=== PATIENT | female | born 1970 | race Caucasian/White ===

== ENCOUNTER 2020-12-29 18:39 | Emergency (ER) | payer BC, OTHER ==
[2020-12-29 18:52] VITALS: BP 123/74; PULSE 81
[2020-12-29] MEDS ORDERED: Ondansetron 4 MG/2 ML SDV IVPUSH ONE (19:35)
--- NOTE | 2020-12-29 19:36 | EDM.PDOC ---
ED HPI GENERAL MEDICAL PROBLEM - General Chief Complaint: General Stated Complaint: [facility] Time Seen by Provider: 12/29/20 19:06 Source of Information: Reports: Patient History Limitations: Reports: Altered Mental Status (mildly lethargic) - History of Present Illness INITIAL COMMENTS - FREE TEXT/NARRATIVE: Ms. Chaudhry is a very pleasant 50-year-old woman who is now brought to the ED by EMS. She reportedly developed sudden-onset generalized weakness, dizziness, diaphoresis, and nausea around 15:00 to 16:00 this afternoon, while at work. She states that she went home, but that her photo manager went to her residence and found her in the same condition, therefore called EMS. The patient denies having any recent fever, cough, chest pain, dyspnea, or abdominal pain. She reports that the only pain that she is experiencing is her chronic neck pain, which she has had for more than a year. The patient denies prior similar symptoms. Here in the ED, the patient is found to be hemodynamically stable, afebrile, saturating 96% on room air. She is mildly lethargic, but is able to answer all questions or cooperate with her physical exam, and is in no acute distress. Prior to this afternoon, the patient denies having a recent fever, chills, sore throat, ear pain, nasal or sinus congestion, cough, dyspnea, chest pain, palpitations, nausea, vomiting, constipation, diarrhea, abdominal pain, urinary symptoms, recent weight gain or weight loss, recent bloody bowel movements or black bowel movements, recent joint aches, headaches, or rashes. The patient does not have a PCP. She has not received the COVID vaccine. - Related Data Allergies Allergy/AdvReac Type Severity Reaction Status Date / Time ibuprofen Allergy Hives Verified 12/29/20 18:52 Home Meds: Home Meds . [No Known Home Meds] 12/29/20 [History] Past Medical History - Past Surgical History HEENT Surgical History: Reports: Oral Surgery (dental extractions), Tonsillectomy Female Surgical History: Reports: Hysterectomy (partial) Social & Family History - Tobacco Use Tobacco Use Status *Q: Current Every Day Tobacco User Years of Tobacco use: 33 Packs/Tins Daily: 0.5 Packs/Tins Daily Comment: Down from 1 ppd Tobacco Use Comment: Started smoking at 17 yrs old - Caffeine Use Caffeine Use: Reports: Coffee - Alcohol Use Alcohol Use History: Yes Alcohol Use Frequency: Socially - Recreational Drug Use Recreational Drug Use: Yes Drug Use in Last 12 Months: Yes Recreational Drug Type: Reports: Marijuana/Hashish (last smoked October 2020) - Living Situation & Occupation Living situation: Reports: , Alone 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 ED EXAM, GENERAL - Physical Exam Exam: See Below Exam Limited By: No Limitations General Appearance: WD/WN, No Apparent Distress, Lethargic (mild) Eye Exam: Bilateral Eye: EOMI, Normal Inspection Ears: Normal External Exam, Hearing Grossly Normal Nose: Normal Inspection, Normal Mucosa Throat/Mouth: Normal Inspection, Normal Lips, Normal Voice, No Airway Compromise Head: Atraumatic, Normocephalic Neck: Normal Inspection, Full Range of Motion Respiratory/Chest: No Respiratory Distress, Lungs Clear, Normal Breath Sounds, No Accessory Muscle Use Cardiovascular: Normal Peripheral Pulses, Regular Rate, Rhythm, No Edema, No Gallop, No JVD, No Murmur, No Rub Peripheral Pulses: 3+: Radial (L), Radial (R) GI/Abdominal: Normal Bowel Sounds, Soft, Non-Tender, No Organomegaly, No Distention, No Abnormal Bruit, No Mass Back Exam: Normal Inspection, Full Range of Motion, NT Extremities: Normal Inspection, Normal Range of Motion, No Pedal Edema, Normal Capillary Refill Neurological: Oriented, No Motor/Sensory Deficits, Other (Mildly lethargic) Psychiatric: Flat Affect Skin Exam: Warm, Dry, Intact, Normal Color, No Rash #1 Interpretation EKG Date: 12/29/20 Time: 19:40 Rhythm: NSR Rate (Beats/Min): 78 [place]: Normal P-Wave: Present QRS: Normal ST-T: Normal QT: Normal Comparison: NA - No Prior EKG Course - Vital Signs Last Recorded V/S: Last Vital Signs Temp 36.1 C 12/29/20 18:43 Pulse 81 12/29/20 18:43 Resp 20 12/29/20 18:43 BP 123/74 12/29/20 18:43 Pulse Ox 96 12/29/20 18:43 Orthostatic Blood Pressure [ 130/85 Standing] Orthostatic Blood Pressure [ 133/88 Sitting] Orthostatic Blood Pressure [ 128/69 Supine] - Orders/Labs/Meds Orders: Active Orders 24 hr Category Date Time Status EKG Documentation Completion [RC] STAT Care 12/29/20 19:26 Active Orthostatic Vital Signs [RC] STAT Care 12/29/20 19:26 Active Sodium Chloride 0.9% [Normal Saline] 1,000 ml Med 12/29/20 19:45 Active IV ASDIRECTED Medication Orders Sodium Chloride (Normal Saline) 1,000 mls @ 150 mls/hr IV ASDIRECTED BAM Last Admin: 12/29/20 19:50 Dose: 150 mls/hr Documented by: JESSICA Labs: Laboratory Tests 12/29/20 12/29/20 12/29/20 Range/Units 18:51 19:09 19:09 WBC 9.09 (3.98-10.04) K/mm3 RBC 4.09 (3.98-5.22) M/mm3 Hgb 12.6 (11.2-15.7) gm/dl Hct 38.4 (34.1-44.9) % MCV 93.9 D (79.4-94.8) fl MCH 30.8 (25.6-32.2) pg MCHC 32.8 (32.2-35.5) g/dl RDW Std Deviation 41.2 (36.4-46.3) fL Plt Count 396 H (182-369) K/mm3 MPV 10.0 (9.4-12.3) fl Neutrophils % (Manual) 54 (40-60) % Band Neutrophils % 1 (0-10) % Lymphocytes % (Manual) 28 (20-40) % Atypical Lymphs % 0 % Monocytes % (Manual) 5 (2-10) % Eosinophils % (Manual) 11 H (0.7-5.8) % Basophils % (Manual) 1 (0.1-1.2) Platelet Estimate Adequate RBC Morph Comment Normal D-Dimer, Quantitative (0.19-0.50) mg/L Sodium 141 (136-145) mEq/L Potassium 3.5 (3.5-5.1) mEq/L Chloride 106 (98-107) mEq/L Carbon Dioxide 26 (21-32) mEq/L Anion Gap 12.5 (5-15) BUN 16 (7-18) mg/dL Creatinine 1.0 (0.55-1.02) mg/dL Est Cr Clr Drug Dosing 48.34 mL/min Estimated GFR (MDRD) 59 (>60) mL/min BUN/Creatinine Ratio 16.0 (14-18) Glucose 100 H (70-99) mg/dL POC Glucose 124 H (70-99) mg/dL Calcium 8.8 (8.5-10.1) mg/dL Magnesium 1.9 (1.8-2.4) mg/dL Total Bilirubin 0.2 (0.2-1.0) mg/dL AST 17 (15-37) U/L ALT 16 (14-59) U/L Alkaline Phosphatase 71 (46-116) U/L Troponin I < 0.017 (0.00-0.056) ng/mL C-Reactive Protein 0.3 (<1.0) mg/dL Total Protein 6.8 (6.4-8.2) g/dl Albumin 3.5 (3.4-5.0) g/dl Globulin 3.3 gm/dL Albumin/Globulin Ratio 1.1 (1-2) TSH 3rd Generation 2.003 (0.358-3.74) uIU/mL Urine Color (Yellow) Urine Appearance (Clear) Urine pH (5.0-8.0) Ur Specific [place] (1.005-1.030) Urine Protein (Negative) Urine Glucose (UA) (Negative) Urine Ketones (Negative) Urine Occult Blood (Negative) Urine Nitrite (Negative) Urine Bilirubin (Negative) Urine Urobilinogen (0.2-1.0) Ur Leukocyte Esterase (Negative) Urine RBC (0-5) /hpf Urine WBC (0-5) /hpf Ur Epithelial Cells (0-5) /hpf Urine Bacteria (FEW) /hpf Urine Mucus (FEW) /hpf Urine HCG, Qual (NEGATIVE) Salicylates (2.8-20) mg/dL Urine Opiates Screen (EKNTIQ=858) Ur Buprenorphine Scrn (CUTOFF=10) Ur Oxycodone Screen (DTD0GN=720) Urine Methadone Screen (WDSSEC=536) Ur Propoxyphene Screen (GLCPSN=246) Acetaminophen 0 L (10-30) ug/mL Ur Barbiturates Screen (HXHXUI=098) Ur Tricyclics Screen (CUFQIY=277) Ur Phencyclidine Scrn (CUTOFF=25) Ur Amphetamine Screen (WHGLZP=329) U Methamphetamines Scrn (ROIVGM=756) U Benzodiazepines Scrn (LIYFZY=750) U Cocaine Metab Screen (XUMILV=648) U Marijuana (THC) Screen (CUTOFF=50) Ethyl Alcohol 0.00 (0.00) gm% SARS-CoV-2 RNA (JUAN) (NEGATIVE) 12/29/20 12/29/20 12/29/20 Range/Units 19:09 19:09 19:30 WBC (3.98-10.04) K/mm3 RBC (3.98-5.22) M/mm3 Hgb (11.2-15.7) gm/dl Hct (34.1-44.9) % MCV (79.4-94.8) fl MCH (25.6-32.2) pg MCHC (32.2-35.5) g/dl RDW Std Deviation (36.4-46.3) fL Plt Count (182-369) K/mm3 MPV (9.4-12.3) fl Neutrophils % (Manual) (40-60) % Band Neutrophils % (0-10) % Lymphocytes % (Manual) (20-40) % Atypical Lymphs % % Monocytes % (Manual) (2-10) % Eosinophils % (Manual) (0.7-5.8) % Basophils % (Manual) (0.1-1.2) Platelet Estimate RBC Morph Comment D-Dimer, Quantitative 0.22 (0.19-0.50) mg/L Sodium (136-145) mEq/L Potassium (3.5-5.1) mEq/L Chloride (98-107) mEq/L Carbon Dioxide (21-32) mEq/L Anion Gap (5-15) BUN (7-18) mg/dL Creatinine (0.55-1.02) mg/dL Est Cr Clr Drug Dosing mL/min Estimated GFR (MDRD) (>60) mL/min BUN/Creatinine Ratio (14-18) Glucose (70-99) mg/dL POC Glucose (70-99) mg/dL Calcium (8.5-10.1) mg/dL Magnesium (1.8-2.4) mg/dL Total Bilirubin (0.2-1.0) mg/dL AST (15-37) U/L ALT (14-59) U/L Alkaline Phosphatase (46-116) U/L Troponin I (0.00-0.056) ng/mL C-Reactive Protein (<1.0) mg/dL Total Protein (6.4-8.2) g/dl Albumin (3.4-5.0) g/dl Globulin gm/dL Albumin/Globulin Ratio (1-2) TSH 3rd Generation (0.358-3.74) uIU/mL Urine Color (Yellow) Urine Appearance (Clear) Urine pH (5.0-8.0) Ur Specific [place] (1.005-1.030) Urine Protein (Negative) Urine Glucose (UA) (Negative) Urine Ketones (Negative) Urine Occult Blood (Negative) Urine Nitrite (Negative) Urine Bilirubin (Negative) Urine Urobilinogen (0.2-1.0) Ur Leukocyte Esterase (Negative) Urine RBC (0-5) /hpf Urine WBC (0-5) /hpf Ur Epithelial Cells (0-5) /hpf Urine Bacteria (FEW) /hpf Urine Mucus (FEW) /hpf Urine HCG, Qual (NEGATIVE) Salicylates 3.6 (2.8-20) mg/dL Urine Opiates Screen (PTURVT=075) Ur Buprenorphine Scrn (CUTOFF=10) Ur Oxycodone Screen (VXN4CA=534) Urine Methadone Screen (BBZGQJ=330) Ur Propoxyphene Screen (NXZXOP=022) Acetaminophen (10-30) ug/mL Ur Barbiturates Screen (YCPWMU=020) Ur Tricyclics Screen (XJKIWZ=736) Ur Phencyclidine Scrn (CUTOFF=25) Ur Amphetamine Screen (FQZDVH=724) U Methamphetamines Scrn (GLIKJN=973) U Benzodiazepines Scrn (WQUTPS=101) U Cocaine Metab Screen (OIEZXX=254) U Marijuana (THC) Screen (CUTOFF=50) Ethyl Alcohol (0.00) gm% SARS-CoV-2 RNA (JUAN) Negative (NEGATIVE) 12/29/20 12/29/20 12/29/20 Range/Units 20:04 20:04 20:04 WBC (3.98-10.04) K/mm3 RBC (3.98-5.22) M/mm3 Hgb (11.2-15.7) gm/dl Hct (34.1-44.9) % MCV (79.4-94.8) fl MCH (25.6-32.2) pg MCHC (32.2-35.5) g/dl RDW Std Deviation (36.4-46.3) fL Plt Count (182-369) K/mm3 MPV (9.4-12.3) fl Neutrophils % (Manual) (40-60) % Band Neutrophils % (0-10) % Lymphocytes % (Manual) (20-40) % Atypical Lymphs % % Monocytes % (Manual) (2-10) % Eosinophils % (Manual) (0.7-5.8) % Basophils % (Manual) (0.1-1.2) Platelet Estimate RBC Morph Comment D-Dimer, Quantitative (0.19-0.50) mg/L Sodium (136-145) mEq/L Potassium (3.5-5.1) mEq/L Chloride (98-107) mEq/L Carbon Dioxide (21-32) mEq/L Anion Gap (5-15) BUN (7-18) mg/dL Creatinine (0.55-1.02) mg/dL Est Cr Clr Drug Dosing mL/min Estimated GFR (MDRD) (>60) mL/min BUN/Creatinine Ratio (14-18) Glucose (70-99) mg/dL POC Glucose (70-99) mg/dL Calcium (8.5-10.1) mg/dL Magnesium (1.8-2.4) mg/dL Total Bilirubin (0.2-1.0) mg/dL AST (15-37) U/L ALT (14-59) U/L Alkaline Phosphatase (46-116) U/L Troponin I (0.00-0.056) ng/mL C-Reactive Protein (<1.0) mg/dL Total Protein (6.4-8.2) g/dl Albumin (3.4-5.0) g/dl Globulin gm/dL Albumin/Globulin Ratio (1-2) TSH 3rd Generation (0.358-3.74) uIU/mL Urine Color Yellow (Yellow) Urine Appearance Clear (Clear) Urine pH 6.0 (5.0-8.0) Ur Specific [place] > or = 1.030 (1.005-1.030) Urine Protein Negative (Negative) Urine Glucose (UA) Negative (Negative) Urine Ketones Negative (Negative) Urine Occult Blood Negative (Negative) Urine Nitrite Negative (Negative) Urine Bilirubin Negative (Negative) Urine Urobilinogen 0.2 (0.2-1.0) Ur Leukocyte Esterase Negative (Negative) Urine RBC 0-5 (0-5) /hpf Urine WBC 0-5 (0-5) /hpf Ur Epithelial Cells 0-5 (0-5) /hpf Urine Bacteria Rare (FEW) /hpf Urine Mucus Few (FEW) /hpf Urine HCG, Qual Negative (NEGATIVE) Salicylates (2.8-20) mg/dL Urine Opiates Screen Negative (CHDSLZ=587) Ur Buprenorphine Scrn Negative (CUTOFF=10) Ur Oxycodone Screen Negative (ENL2WZ=958) Urine Methadone Screen Negative (JTVVPP=982) Ur Propoxyphene Screen Negative (VABOIK=971) Acetaminophen (10-30) ug/mL Ur Barbiturates Screen Negative (DYZGAZ=238) Ur Tricyclics Screen Negative (BSVIHQ=182) Ur Phencyclidine Scrn Negative (CUTOFF=25) Ur Amphetamine Screen Presumptive positive H (XHTWTR=188) U Methamphetamines Scrn Presumptive positive H (CZRRCS=388) U Benzodiazepines Scrn Negative (DZASJJ=014) U Cocaine Metab Screen Negative (YCCIBR=363) U Marijuana (THC) Screen Negative (CUTOFF=50) Ethyl Alcohol (0.00) gm% SARS-CoV-2 RNA (JUAN) (NEGATIVE) Meds: Medications Generic Name Dose Route Start Last Admin Trade Name Freq PRN Reason Stop Dose Admin Sodium Chloride 1,000 mls @ 150 mls/hr 12/29/20 19:45 12/29/20 19:50 Normal Saline IV 150 mls/hr ASDIRECTED BAM Administration Discontinued Medications Generic Name Dose Route Start Last Admin Trade Name Freq PRN Reason Stop Dose Admin Ondansetron HCl 4 mg 12/29/20 19:35 12/29/20 19:50 Ondansetron 4 Mg/2 Ml Sdv IVPUSH 12/29/20 19:36 4 mg ONETIME ONE Administration - Re-Assessments/Exams Free Text/Narrative Re-Assessment/Exam: 12/29/20 19:31 As above, the patient developed sudden-onset generalized weakness, dizziness, diaphoresis, nausea around 15:00-16:00 this afternoon, went home, but when her photo manager went to her residence and found her still in that condition, her photo manager called EMS. Here in the ED, she is hemodynamically stable, afebrile, saturating 96% on room air. Accu-Chek is 124. She denies recent chest pain, dyspnea, abdominal pain, gastrointestinal symptoms, or urinary symptoms. She reports that her only pain is chronic neck pain. Her physical exam is completely unremarkable. The cause of her symptoms is not immediately obvious, therefore I have ordered a work-up that includes orthostatics, numerous blood tests, a urinalysis, a urine test, a urine drug screen, a swab for the SARS-CoV-2 virus, and an ECG. In the meantime, the patient will be given some IV Zofran and IV fluid. 12/29/20 20:11 The patient is not orthostatic. 12/29/20 20:45 The patient's CBC is remarkable for mild thrombocytosis of 396,000, and is otherwise unremarkable. Her CMP is unremarkable. Her magnesium level is within normal limits at 1.9. Her TSH is within normal limits at 2.003. Her CRP is within normal limits at 0.3. Her troponin is undetectably low. Her D-dimer is within normal limits at 0.22. Her salicylate level is within normal limits at 3.6. Her acetaminophen level is 0. Her EtOH level is 0.00. Her urinalysis is unremarkable. Her urine test is negative. Her urine drug screen is positive for methamphetamine and amphetamine. Her swab for the SARS-CoV-2 virus is negative. 12/29/20 20:53 Test results discussed with the patient. As above, today's work-up is completely unremarkable, with the exception of her urine drug screen being positive for methamphetamine/amphetamine. I recommended that the patient seek professional help to stop using methamphetamine, by going to [facility]. She stated that she would. Additionally, I recommended that she get the COVID vaccine. She said that she would consider it. Departure - Departure Time of Disposition: 20:54 Disposition: Home, Self-Care 01 Condition: Good Clinical Impression: Methamphetamine abuse - Discharge Information *PRESCRIPTION DRUG MONITORING PROGRAM REVIEWED*: Not Applicable *COPY OF PRESCRIPTION DRUG MONITORING REPORT IN PATIENT NELLY: Not Applicable Instructions: Methamphetamines Use Disorder Referrals: PCP,None [Primary Care Provider] - Forms: ED Department Discharge Additional Instructions: You were seen in the emergency room after developing generalized weakness, dizziness, sweatiness, and nausea. Work-up in the ER included positional blood pressure checks, numerous blood tests, a urinalysis, a urine test, a urine drug screen, a swab for the SARS-CoV-2 virus, and an ECG. Your urine drug screen returned positive for both methamphetamine and amphetamine. The remainder of your work-up was unremarkable. Stay adequately hydrated and get plenty of rest today. As discussed, we strongly recommend that you abstain from using methamphetamine and seek professional help by going to [facility]: [address] [phone] As discussed, we also recommend that you get the COVID vaccine. If any other problems, please do not hesitate to return to the ER. Sepsis Event Note (ED) - Evaluation Sepsis Screening Result: No Definite Risk - Focused Exam Vital Signs: Vital Signs Temp Pulse Resp BP Pulse Ox 12/29/20 18:43 36.1 C 81 20 123/74 96 - My Orders Last 24 Hours: My Active Orders 12/29/20 19:26 EKG Documentation Completion [RC] STAT Orthostatic Vital Signs [RC] STAT 12/29/20 19:45 Sodium Chloride 0.9% [Normal Saline] 1,000 ml IV ASDIRECTED - Assessment/Plan Last 24 Hours: My Active Orders 12/29/20 19:26 EKG Documentation Completion [RC] STAT Orthostatic Vital Signs [RC] STAT 12/29/20 19:45 Sodium Chloride 0.9% [Normal Saline] 1,000 ml IV ASDIRECTED
[2020-12-29] MEDS ORDERED: Sodium Chloride 0.9% 1,000 ML IV SCH (19:45)
[2020-12-29 20:20] LABS: ACETAMINOPHEN 0 ug/mL (10-30)
== END 2020-12-29 21:12 | disposition home or self-care (01) ==
LOC: JD.ED 18:39
DX: F15.10 Other stimulant abuse, uncomplicated (principal); Z20.822 Contact with and (suspected) exposure to COVID-19; Z88.8 Allergy status to other drugs, medicaments and biological substances
CPT/HCPCS: 36415; 80053; 80143; 80179; 80306; 80307; 81001; 81025; 82947; 83735; 84443; 84484; 85007; 85027; 85379; 86140; 87635; 93005; 96374; 99285; J2405; J7030; 99284; U0002

== ENCOUNTER 2021-05-13 18:22 | Emergency (ER) | payer OTHER ==
[2021-05-13 18:39] VITALS: BP 161/85; PULSE 91
[2021-05-13] MEDS ORDERED: fentaNYL 100 MCG/2 ML SDV IVPUSH ONE (19:34)
[2021-05-13] MEDS ORDERED: Sodium Chloride 0.9% 1,000 ML IV SCH (19:45)
[2021-05-13] MEDS: Sodium Chloride 0.9% 10 ML Syringe FLUSH PRN ×2 (19:55→20:52)
--- NOTE | 2021-05-13 20:13 | EDM.PDOC ---
ED HPI GENERAL MEDICAL PROBLEM - General Chief Complaint: Gastrointestinal Problem Stated Complaint: [facility] Time Seen by Provider: 05/13/21 19:27 Source of Information: Reports: Patient, RN Notes Reviewed History Limitations: Reports: No Limitations - History of Present Illness INITIAL COMMENTS - FREE TEXT/NARRATIVE: Patient is a 50-year-old female who presents to the ER via [facility] ambulance service for the evaluation of her abdominal pain. Patient was given 25 mcg of fentanyl, and 4 mg Zofran while in route to the ER. Patient states that around 2 PM today she developed a burning type pain to her mid abdomen. States has been constant since it showed up and has not relented in the least bit. It has not radiated anywhere else. She was feeling a little bit nauseous but states the Zofran has helped. She states that the fentanyl helped when it was given but has worn off. She has had no fevers, but has had chills. States that she had a good bowel movement this morning and this was normal for her and she is denying any sort of diarrhea. Patient has had a hysterectomy but still retains her ovaries, appendix, and gallbladder. She is denying any UTI-like symptoms at today's visit. Abdominal Pain Score (Numeric/FACES): 5 - Related Data Allergies Allergy/AdvReac Type Severity Reaction Status Date / Time ibuprofen Allergy Hives Verified 05/13/21 18:39 Home Meds: Home Meds . 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 ED EXAM, GI/ABD - Physical Exam Exam: See Below Exam Limited By: No Limitations General Appearance: Alert, WD/WN, No Apparent Distress Respiratory/Chest: No Respiratory Distress, Lungs Clear, Normal Breath Sounds, No Accessory Muscle Use, Chest Non-Tender Cardiovascular: Normal Peripheral Pulses, Regular Rate, Rhythm, No Edema GI/Abdominal Exam: Normal Bowel Sounds, Soft, No Distention, No Mass, Tender (lower abdoment mainly, LLQ seems to be the most tender) Extremities: Normal Inspection, Normal Capillary Refill Neurological: Alert, Oriented, Normal Cognition, No Motor/Sensory Deficits Psychiatric: Normal Affect, Normal Mood Skin Exam: Warm, Dry, Intact, Normal Color, No Rash Course - Vital Signs Last Recorded V/S: Last Vital Signs Temp 97.8 F 05/13/21 18:35 Pulse 91 05/13/21 18:35 Resp 16 05/13/21 18:35 BP 161/85 H 05/13/21 18:35 Pulse Ox 100 05/13/21 18:35 - Orders/Labs/Meds Orders: Active Orders 24 hr Category Date Time Status Peripheral IV Care [RC] . DIRECTED Care 05/13/21 19:34 Ordered Abdomen Pelvis w Cont [CT] Stat Exams 05/13/21 19:34 Ordered UA W/MICROSCOPIC [URIN] Stat Lab 05/13/21 19:34 Ordered Heparin Sodium/D5W [Heparin 25,000 Units in D5W 500 ML] Med 05/13/21 22:45 Ordered 25,000 units in 500 ml IV TITRATE Sodium Chloride 0.9% [Saline Flush] Med 05/13/21 19:34 Ordered 10 ml FLUSH ASDIRECTED PRN Peripheral IV Insertion Adult [OM.PC] Stat Oth 05/13/21 19:34 Ordered Medication Orders Heparin Sodium/Dextrose (Heparin 25,000 Units In D5w 500 Ml) 25,000 units in 500 mls @ 14.152 mls/hr IV TITRATE [facility]; Protocol Last Admin: 05/13/21 23:05 Dose: 12 units/kg/hr, 14.152 mls/hr Documented by: GAL Cosigned by: SAYDA Sodium Chloride (Sodium Chloride 0.9% 10 Ml Syringe) 10 ml FLUSH ASDIRECTED PRN PRN Reason: Keep Vein Open Last Admin: 05/13/21 20:52 Dose: 10 ml Documented by: Admin: 05/13/21 19:55 Dose: 10 ml Documented by: GAL Labs: Laboratory Tests 05/13/21 05/13/21 05/13/21 Range/Units 19:34 19:46 19:46 WBC 12.49 H (3.98-10.04) K/mm3 RBC 3.93 L (3.98-5.22) M/mm3 Hgb 12.1 (11.2-15.7) gm/dl Hct 37.9 (34.1-44.9) % MCV 96.4 H (79.4-94.8) fl MCH 30.8 (25.6-32.2) pg MCHC 31.9 L (32.2-35.5) g/dl RDW Std Deviation 43.0 (36.4-46.3) fL Plt Count 402 H (182-369) K/mm3 MPV 9.3 L (9.4-12.3) fl Neut % (Auto) 67.0 (34.0-71.1) % Lymph % (Auto) 19.4 (19.3-51.7) % Nuckolls % (Auto) 5.5 (4.7-12.5) % Eos % (Auto) 7.1 H (0.7-5.8) Baso % (Auto) 0.8 (0.1-1.2) % Neut # (Auto) 8.37 H (1.56-6.13) K/mm3 Lymph # (Auto) 2.42 (1.18-3.74) K/mm3 Nuckolls # (Auto) 0.69 H (0.24-0.36) K/mm3 Eos # (Auto) 0.89 H (0.04-0.36) K/mm3 Baso # (Auto) 0.10 H (0.01-0.08) K/mm3 APTT 26.5 (21.7-31.4) SECONDS Sodium 145 (136-145) mEq/L Potassium 3.5 (3.5-5.1) mEq/L Chloride 110 H (98-107) mEq/L Carbon Dioxide 26 (21-32) mEq/L Anion Gap 12.5 (5-15) BUN 11 (7-18) mg/dL Creatinine 0.8 (0.55-1.02) mg/dL Est Cr Clr Drug Dosing TNP Estimated GFR (MDRD) > 60 (>60) mL/min BUN/Creatinine Ratio 13.8 L (14-18) Glucose 115 H (70-99) mg/dL Calcium 8.4 L (8.5-10.1) mg/dL Total Bilirubin 0.2 (0.2-1.0) mg/dL AST 16 (15-37) U/L ALT 15 (14-59) U/L Alkaline Phosphatase 66 (46-116) U/L C-Reactive Protein <0.2 (<1.0) mg/dL Total Protein 6.2 L (6.4-8.2) g/dl Albumin 3.1 L (3.4-5.0) g/dl Globulin 3.1 gm/dL Albumin/Globulin Ratio 1.0 (1-2) Lipase 183 (73-393) U/L SARS-CoV-2 RNA (JUAN) (NEGATIVE) 05/13/21 Range/Units 19:56 WBC (3.98-10.04) K/mm3 RBC (3.98-5.22) M/mm3 Hgb (11.2-15.7) gm/dl Hct (34.1-44.9) % MCV (79.4-94.8) fl MCH (25.6-32.2) pg MCHC (32.2-35.5) g/dl RDW Std Deviation (36.4-46.3) fL Plt Count (182-369) K/mm3 MPV (9.4-12.3) fl Neut % (Auto) (34.0-71.1) % Lymph % (Auto) (19.3-51.7) % Nuckolls % (Auto) (4.7-12.5) % Eos % (Auto) (0.7-5.8) Baso % (Auto) (0.1-1.2) % Neut # (Auto) (1.56-6.13) K/mm3 Lymph # (Auto) (1.18-3.74) K/mm3 Nuckolls # (Auto) (0.24-0.36) K/mm3 Eos # (Auto) (0.04-0.36) K/mm3 Baso # (Auto) (0.01-0.08) K/mm3 APTT (21.7-31.4) SECONDS Sodium (136-145) mEq/L Potassium (3.5-5.1) mEq/L Chloride (98-107) mEq/L Carbon Dioxide (21-32) mEq/L Anion Gap (5-15) BUN (7-18) mg/dL Creatinine (0.55-1.02) mg/dL Est Cr Clr Drug Dosing Estimated GFR (MDRD) (>60) mL/min BUN/Creatinine Ratio (14-18) Glucose (70-99) mg/dL Calcium (8.5-10.1) mg/dL Total Bilirubin (0.2-1.0) mg/dL AST (15-37) U/L ALT (14-59) U/L Alkaline Phosphatase (46-116) U/L C-Reactive Protein (<1.0) mg/dL Total Protein (6.4-8.2) g/dl Albumin (3.4-5.0) g/dl Globulin gm/dL Albumin/Globulin Ratio (1-2) Lipase (73-393) U/L SARS-CoV-2 RNA (JUAN) Negative (NEGATIVE) Meds: Medications Generic Name Dose Route Start Last Admin Trade Name Freq PRN Reason Stop Dose Admin Heparin Sodium/Dextrose 25,000 units in 500 mls @ 14.152 mls/hr 05/13/21 22:45 05/13/21 23:05 Heparin 25,000 Units In D5w 500 Ml IV 12 units/kg/hr TITRATE BAM 14.152 mls/hr Administration Protocol 12 UNITS/KG/HR Sodium Chloride 10 ml 05/13/21 19:34 05/13/21 20:52 Sodium Chloride 0.9% 10 Ml Syringe FLUSH 10 ml ASDIRECTED PRN Administration Keep Vein Open Discontinued Medications Generic Name Dose Route Start Last Admin Trade Name Freq PRN Reason Stop Dose Admin Diatrizoate Meglum/Diatrizoate Sod 120 ml 05/13/21 20:26 05/13/21 20:52 Diatrizoate Meglumine/Diatrizoate Sodium 37% 120 Ml Bottle PO 05/13/21 20:27 Not Given ONETIME ONE Fentanyl 50 mcg 05/13/21 19:34 05/13/21 19:55 Fentanyl 100 Mcg/2 Ml Sdv IVPUSH 05/13/21 19:35 50 mcg ONETIME ONE Administration Heparin Sodium (Porcine) 4,000 units 05/13/21 22:31 05/13/21 23:06 Heparin Sodium 5,000 Units/Ml Vial IVPUSH 05/13/21 22:32 4,000 units .BOLUS ONE Administration Sodium Chloride 1,000 mls @ 999 mls/hr 05/13/21 19:45 05/13/21 19:55 Normal Saline IV 999 mls/hr ASDIRECTED BAM Administration Sodium Chloride 1,000 mls @ 999 mls/hr 05/13/21 20:15 Normal Saline IV 05/13/21 21:15 ONETIME ONE Piperacillin Sod/Tazobactam 100 mls @ 200 mls/hr 05/13/21 22:28 05/13/21 23:05 Sod 4.5 gm/ Sodium Chloride IV 05/13/21 22:57 200 mls/hr ONETIME ONE Administration Iopamidol 25 ml 05/13/21 20:26 05/13/21 20:52 Iopamidol 612 Mg/Ml 50 Ml Sdv IVPUSH 05/13/21 20:27 50 ml ONETIME ONE Administration Iopamidol 100 ml 05/13/21 20:26 05/13/21 20:52 Iopamidol 612 Mg/Ml 100 Ml Bottle IVPUSH 05/13/21 20:27 100 ml ONETIME ONE Administration Nicotine 21 mg 05/13/21 22:44 05/13/21 23:06 Nicotine 21 Mg/24 Hr Patch TRDERM 05/13/21 22:45 21 mg ONETIME ONE Administration Sodium Chloride 10 ml 05/13/21 20:27 Sodium Chloride 0.9% 10 Ml Sdv FLUSH 05/13/21 20:28 ONETIME ONE - Re-Assessments/Exams Free Text/Narrative Re-Assessment/Exam: 05/13/21 20:12 Patient presents to the ER for the evaluation of her abdomen discomfort. We will go ahead and get some basic labs, and an abdomen pelvis CT for further evaluation. Patient will also have a COVID-19 screen taken at today's visit. 05/13/21 21:44 Patient's labs have resulted, CBC demonstrates a modestly elevated white count at 12.49 with no discernible left shift on auto differential. Metabolic panel was essentially unremarkable, CRP is undetectably low. Lipase is within normal limits. CT has been performed, but we are awaiting official CT report at this time. Patient's COVID-19 screen was negative for today's purposes as well. 05/13/21 22:[address] demonstrates findings concerning for portal venous gas with no pneumoperitoneum, and mural stratification of the right colon spectrum of findings are concerning for intestinal ischemia. Patient is a smoker, so this very well could be I did call Dr. Espinal our surgeon on-call, and she does recommend heparin to be started on with IV antibiotics, Zosyn. I did discuss the findings with both hospitals in [place] and they are on diversion for any sort admits. So I did call [facility] in [place], they did state that they were only supposed to be excepting STEMI's, strokes, and traumas. However this patient does need more of an urgent surgical consult that we cannot provide in this facility appropriately. The one call at [facility] did take some information and states she is supposed to be calling me back. 05/13/21 23:16 I was able to speak with 2 providers at [facility] in [place], Dr. Rebollar the general surgeon on-call, and Dr. Montilla the ER doctor and they do graciously accept the patient for transfer. [facility] in [place] was going to dispatch flight to get the patient transferred here in a more timely fashion. Departure - Departure Time of Disposition: 23:16 Disposition: DC/Tfer to Acute Hospital 02 Condition: Serious Clinical Impression: Acute mesenteric ischemia - Discharge Information Forms: ED Department Discharge Sepsis Event Note (ED) - Evaluation Sepsis Screening Result: No Definite Risk - Focused Exam Vital Signs: Vital Signs Temp Pulse Resp BP Pulse Ox 05/13/21 18:35 97.8 F 91 16 161/85 H 100 - My Orders Last 24 Hours: My Active Orders 05/13/21 19:34 Peripheral IV Care [RC] . DIRECTED Abdomen Pelvis w Cont [CT] Stat UA W/MICROSCOPIC [URIN] Stat Sodium Chloride 0.9% [Saline Flush] 10 ml FLUSH ASDIRECTED PRN Peripheral IV Insertion Adult [OM.PC] Stat 05/13/21 22:45 Heparin Sodium/D5W [Heparin 25,000 Units in D5W 500 ML] 25,000 units in 500 ml IV TITRATE - Assessment/Plan Last 24 Hours: My Active Orders 05/13/21 19:34 Peripheral IV Care [RC] . DIRECTED Abdomen Pelvis w Cont [CT] Stat UA W/MICROSCOPIC [URIN] Stat Sodium Chloride 0.9% [Saline Flush] 10 ml FLUSH ASDIRECTED PRN Peripheral IV Insertion Adult [OM.PC] Stat 05/13/21 22:45 Heparin Sodium/D5W [Heparin 25,000 Units in D5W 500 ML] 25,000 units in 500 ml IV TITRATE
[2021-05-13] MEDS ORDERED: Sodium Chloride 0.9% 1,000 ML IV ONE (20:15)
[2021-05-13] MEDS ORDERED: Diatrizoate Meglumine/Diatrizoate Sodium 37% 120 ML Bottle PO ONE (20:26)
[2021-05-13] MEDS ORDERED: Iopamidol 612 MG/ML 100 ML Bottle IVPUSH ONE (20:26)
[2021-05-13] MEDS ORDERED: Iopamidol 612 MG/ML 50 ML SDV IVPUSH ONE (20:26)
[2021-05-13] MEDS ORDERED: Sodium Chloride 0.9% 10 ML SDV FLUSH ONE (20:27)
[2021-05-13] MEDS ORDERED: Piperacillin/Tazobactam 4.5 GM in Sodium Chloride 0.9% 100 ML IV ONE (22:28)
[2021-05-13] MEDS ORDERED: Heparin Sodium 5,000 Units/ML Vial IVPUSH ONE (22:31)
[2021-05-13] MEDS ORDERED: Nicotine 21 MG/24 Hr Patch TRDERM ONE (22:44)
[2021-05-13] MEDS ORDERED: Heparin Sodium/D5W 25,000 UNITS/500 ML BAG IV SCH (22:45)
[2021-05-13] MEDS ORDERED: LORazepam 2 MG/ML SDV IVPUSH ONE (23:36)
--- NOTE | 2021-05-14 07:25 | CT ---
CT abdomen and pelvis Technique: Multiple axial sections were obtained from above the dome of the diaphragm inferiorly through the pubic symphysis. Intravenous contrast was utilized. No oral contrast has been given. Delayed images were also obtained through the pelvis. Reconstructed coronal and sagittal images were obtained. Comparison: No prior abdominal imaging is available. Findings: Slight atelectasis is noted within the right lung base. Liver shows mild areas of air anteriorly. Findings are most likely due to areas of air within the distal portal veins. Liver is otherwise unremarkable. Spleen size is normal. Adrenal glands show no nodule. Pancreas shows no abnormality. Gallbladder is collapsed. Kidneys show symmetric contrast enhancement with no hydronephrosis or mass. Abdominal aorta shows atherosclerotic change with no aneurysm. No retroperitoneal adenopathy is seen. No mesenteric abnormalities are seen. There is bowel wall edema being seen within the right colon with mild surrounding inflammatory change. No additional bowel abnormality is appreciated on the CT exam. Appendix is seen which is normal in size. No pelvic mass or adenopathy is seen. Delayed images shows contrast within the distal ureters and within the bladder. Bone window settings were reviewed which show mild scattered degenerative change within the spine. No acute osseous abnormality is appreciated. Impression: 1. Abnormal right colon with possible air within the distal portal veins within the anterior liver. Findings are suspicious for possible ischemia within the right colon. Please correlate with the patient's symptoms. 2. Other chronic findings as described above. Diagnostic code #5 I agree with preliminary report from [facility], finalized on , 11:22 PM CDT, code 1
== END 2021-05-13 23:56 ==
LOC: JD.ED 18:22
DX: K55.059 Acute (reversible) ischemia of intestine, part and extent unspecified (principal); Z72.0 Tobacco use; Z88.6 Allergy status to analgesic agent; Z20.822 Contact with and (suspected) exposure to COVID-19
CPT/HCPCS: 36415; 74177; 80053; 83690; 85025; 85730; 86140; 87635; 87804; 96365; 96368; 96375; 99285; A9270; J1644; J2543; J3010; J7030; Q9963; Q9967; U0002

== ENCOUNTER 2021-05-23 12:53 | Emergency (ER) | payer OTHER ==
[2021-05-23 13:15] VITALS: BP 100/63; PULSE 75
[2021-05-23] MEDS ORDERED: Ondansetron 4 MG/2 ML SDV IVPUSH ONE (13:19)
[2021-05-23] MEDS ORDERED: Sodium Chloride 0.9% 1,000 ML IV STA (13:19)
[2021-05-23] MEDS ORDERED: HYDROmorphone 0.5 MG/0.5 ML Syringe IVPUSH ONE (13:19)
[2021-05-23] MEDS ORDERED: Sodium Chloride 0.9% 10 ML Syringe FLUSH PRN ×2 (13:19→13:48)
[2021-05-23] MEDS ORDERED: Diatrizoate Meglumine/Diatrizoate Sodium 37% 120 ML Bottle PO ONE (13:48)
[2021-05-23] MEDS ORDERED: Iopamidol 612 MG/ML 100 ML Bottle IVPUSH ONE (13:48)
--- NOTE | 2021-05-23 13:56 | EDM.PDOC ---
ED HPI GENERAL MEDICAL PROBLEM - General Chief Complaint: Abdominal Pain Stated Complaint: ABDOMINAL PAIN POST OP Time Seen by Provider: 05/23/21 13:04 Source of Information: Reports: Patient, RN Notes Reviewed History Limitations: Reports: No Limitations - History of Present Illness INITIAL COMMENTS - FREE TEXT/NARRATIVE: Patient is a 50-year-old female presenting to the emergency department with complaints of mid abdominal pain with bloating, increased fatigue, and chills. She reports last Thursday she had laparoscopic surgery which she believes was appendectomy. She was seen in this emergency department prior to being sent to [facility] in [place]. CT showed likely bowel ischemia. She does not believe she had bowel resection completed. She does not feel that the pain is necessarily worsened since her surgery, however it is not improving. Reports she feels more bloated and has more tenderness on the right side of her abdomen. She is passing gas and having bowel movements normally. She is had no fever, vomiting, diarrhea. Denies any respiratory symptoms. She is not vaccinated for Covid. She has not contacted her surgeon in [place] to discuss her symptoms. Reports that she was prescribed Percocet on discharge from the hospital, however she ran out of this 3 days after her discharge. She has not been taking any [id number] medications for pain. Middle Abdomen Pain Score (Numeric/FACES): 7 - Related Data Allergies Allergy/AdvReac Type Severity Reaction Status Date / Time ibuprofen Allergy Severe Hives Verified 05/23/21 13:06 Home Meds: Home Meds . [No Known Home Meds] 12/29/20 [History] Past Medical History - Infectious Disease History Infectious Disease History: Reports: None - Past Surgical History HEENT Surgical History: Reports: Oral Surgery, Tonsillectomy GI Surgical History: Reports: Appendectomy Female Surgical History: Reports: Hysterectomy Other Female Surgeries/Procedures: partial Social & Family History - Tobacco Use Tobacco Use Status *Q: Current Every Day Tobacco User Years of Tobacco use: 30 Packs/Tins Daily: 0.5 - Caffeine Use Caffeine Use: Reports: Coffee, Soda, Tea - Recreational Drug Use Recreational Drug Use: No - Living Situation & Occupation Living situation: Reports: , Alone 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 ED EXAM, GI/ABD - Physical Exam Exam: See Below Exam Limited By: No Limitations General Appearance: Alert, WD/WN, No Apparent Distress Respiratory/Chest: No Respiratory Distress, Lungs Clear, Normal Breath Sounds, No Accessory Muscle Use, Chest Non-Tender Cardiovascular: Normal Peripheral Pulses, Regular Rate, Rhythm, No Edema, No Gallop, No JVD, No Murmur, No Rub GI/Abdominal Exam: Normal Bowel Sounds, Soft, No Organomegaly, No Distention, No Abnormal Bruit, No Mass, Pelvis Stable, Tender (Right lower quadrant and periumbilical), Other (3 midline lap sites to left abdominal lap sites. Well approximated. No redness, swelling, or purulent drainage.) Neurological: Alert, Oriented, CN II-XII Intact, Normal Cognition, Normal Gait, Normal Reflexes, No Motor/Sensory Deficits Psychiatric: Normal Affect, Normal Mood Skin Exam: Warm, Dry, Intact, Normal Color, No Rash Course - Vital Signs Last Recorded V/S: Last Vital Signs Temp 98.0 F 05/23/21 13:09 Pulse 75 05/23/21 13:09 Resp 20 05/23/21 13:09 BP 100/63 05/23/21 13:09 Pulse Ox 98 05/23/21 13:09 - Orders/Labs/Meds Orders: Active Orders 24 hr Category Date Time Status BLOOD CULTURE [MREF] Stat Lab 05/23/21 13:32 Received BLOOD CULTURE [MREF] Stat Lab 05/23/21 13:42 Received Blood Culture x2 Reflex Set [OM.PC] Stat Oth 05/23/21 13:19 Ordered Peripheral IV Insertion Adult [OM.PC] Stat Oth 05/23/21 13:19 Ordered Labs: Laboratory Tests 05/23/21 05/23/21 05/23/21 Range/Units 13:10 13:32 13:32 WBC 10.18 H (3.98-10.04) K/mm3 RBC 4.43 (3.98-5.22) M/mm3 Hgb 13.6 D (11.2-15.7) gm/dl Hct 42.6 (34.1-44.9) % MCV 96.2 H (79.4-94.8) fl MCH 30.7 (25.6-32.2) pg MCHC 31.9 L (32.2-35.5) g/dl RDW Std Deviation 43.9 (36.4-46.3) fL Plt Count 518 H D (182-369) K/mm3 MPV 9.3 L (9.4-12.3) fl Neut % (Auto) 63.4 (34.0-71.1) % Lymph % (Auto) 21.7 (19.3-51.7) % Stanton % (Auto) 5.8 (4.7-12.5) % Eos % (Auto) 8.0 H (0.7-5.8) Baso % (Auto) 0.9 (0.1-1.2) % Neut # (Auto) 6.46 H (1.56-6.13) K/mm3 Lymph # (Auto) 2.21 (1.18-3.74) K/mm3 Stanton # (Auto) 0.59 H (0.24-0.36) K/mm3 Eos # (Auto) 0.81 H (0.04-0.36) K/mm3 Baso # (Auto) 0.09 H (0.01-0.08) K/mm3 Sodium 143 (136-145) mEq/L Potassium 3.9 (3.5-5.1) mEq/L Chloride 108 H (98-107) mEq/L Carbon Dioxide 26 (21-32) mEq/L Anion Gap 12.9 (5-15) BUN 17 (7-18) mg/dL Creatinine 0.9 (0.55-1.02) mg/dL Est Cr Clr Drug Dosing 56.43 mL/min Estimated GFR (MDRD) > 60 (>60) mL/min BUN/Creatinine Ratio 18.9 H (14-18) Glucose 112 H (70-99) mg/dL Lactic Acid (0.4-2.0) mmol/L Calcium 8.9 (8.5-10.1) mg/dL Total Bilirubin 0.1 L (0.2-1.0) mg/dL AST 11 L (15-37) U/L ALT 14 (14-59) U/L Alkaline Phosphatase 68 (46-116) U/L C-Reactive Protein <0.2 (<1.0) mg/dL Total Protein 7.1 (6.4-8.2) g/dl Albumin 3.4 (3.4-5.0) g/dl Globulin 3.7 gm/dL Albumin/Globulin Ratio 0.9 L (1-2) Urine Color (Yellow) Urine Appearance (Clear) Urine pH (5.0-8.0) Ur Specific [place] (1.005-1.030) Urine Protein (Negative) Urine Glucose (UA) (Negative) Urine Ketones (Negative) Urine Occult Blood (Negative) Urine Nitrite (Negative) Urine Bilirubin (Negative) Urine Urobilinogen (0.2-1.0) Ur Leukocyte Esterase (Negative) Urine RBC (0-5) /hpf Urine WBC (0-5) /hpf Ur Squamous Epith Cells (0-5) /hpf Urine Bacteria (FEW) /hpf Urine Mucus (FEW) /hpf SARS-CoV-2 RNA (JUAN) Negative (NEGATIVE) 05/23/21 05/23/21 Range/Units 13:32 15:45 WBC (3.98-10.04) K/mm3 RBC (3.98-5.22) M/mm3 Hgb (11.2-15.7) gm/dl Hct (34.1-44.9) % MCV (79.4-94.8) fl MCH (25.6-32.2) pg MCHC (32.2-35.5) g/dl RDW Std Deviation (36.4-46.3) fL Plt Count (182-369) K/mm3 MPV (9.4-12.3) fl Neut % (Auto) (34.0-71.1) % Lymph % (Auto) (19.3-51.7) % Stanton % (Auto) (4.7-12.5) % Eos % (Auto) (0.7-5.8) Baso % (Auto) (0.1-1.2) % Neut # (Auto) (1.56-6.13) K/mm3 Lymph # (Auto) (1.18-3.74) K/mm3 Stanton # (Auto) (0.24-0.36) K/mm3 Eos # (Auto) (0.04-0.36) K/mm3 Baso # (Auto) (0.01-0.08) K/mm3 Sodium (136-145) mEq/L Potassium (3.5-5.1) mEq/L Chloride (98-107) mEq/L Carbon Dioxide (21-32) mEq/L Anion Gap (5-15) BUN (7-18) mg/dL Creatinine (0.55-1.02) mg/dL Est Cr Clr Drug Dosing mL/min Estimated GFR (MDRD) (>60) mL/min BUN/Creatinine Ratio (14-18) Glucose (70-99) mg/dL Lactic Acid 1.4 (0.4-2.0) mmol/L Calcium (8.5-10.1) mg/dL Total Bilirubin (0.2-1.0) mg/dL AST (15-37) U/L ALT (14-59) U/L Alkaline Phosphatase (46-116) U/L C-Reactive Protein (<1.0) mg/dL Total Protein (6.4-8.2) g/dl Albumin (3.4-5.0) g/dl Globulin gm/dL Albumin/Globulin Ratio (1-2) Urine Color Yellow (Yellow) Urine Appearance Clear (Clear) Urine pH 6.0 (5.0-8.0) Ur Specific [place] 1.015 (1.005-1.030) Urine Protein Negative (Negative) Urine Glucose (UA) Negative (Negative) Urine Ketones Negative (Negative) Urine Occult Blood Negative (Negative) Urine Nitrite Negative (Negative) Urine Bilirubin Negative (Negative) Urine Urobilinogen 0.2 (0.2-1.0) Ur Leukocyte Esterase Negative (Negative) Urine RBC 0-5 (0-5) /hpf Urine WBC 0-5 (0-5) /hpf Ur Squamous Epith Cells 0-5 (0-5) /hpf Urine Bacteria Few (FEW) /hpf Urine Mucus Not seen (FEW) /hpf SARS-CoV-2 RNA (JUAN) (NEGATIVE) Meds: Medications Discontinued Medications Generic Name Dose Route Start Last Admin Trade Name Freq PRN Reason Stop Dose Admin Diatrizoate Meglum/Diatrizoate Sod 120 ml 05/23/21 13:48 05/23/21 14:41 Diatrizoate Meglumine/Diatrizoate Sodium 37% 120 Ml Bottle PO 05/23/21 13:49 30 ml ONETIME ONE Administration Hydromorphone HCl 0.5 mg 05/23/21 13:19 05/23/21 13:31 Hydromorphone 0.5 Mg/0.5 Ml Syringe IVPUSH 05/23/21 13:20 0.5 mg ONETIME ONE Administration Sodium Chloride 1,000 mls @ 150 mls/hr 05/23/21 13:19 05/23/21 13:32 Normal Saline IV 05/23/21 19:58 150 mls/hr NOW STA Administration Iopamidol 100 ml 05/23/21 13:48 05/23/21 14:42 Iopamidol 612 Mg/Ml 100 Ml Bottle IVPUSH 05/23/21 13:49 100 ml ONETIME ONE Administration Ondansetron HCl 4 mg 05/23/21 13:19 05/23/21 13:31 Ondansetron 4 Mg/2 Ml Sdv IVPUSH 05/23/21 13:20 4 mg ONETIME ONE Administration Sodium Chloride 10 ml 05/23/21 13:19 05/23/21 13:31 Sodium Chloride 0.9% 10 Ml Syringe FLUSH 10 ml ASDIRECTED PRN Administration Keep Vein Open Sodium Chloride 10 ml 05/23/21 13:48 05/23/21 14:42 Sodium Chloride 0.9% 10 Ml Syringe FLUSH 10 ml ONETIME PRN Administration IV FLUSH - Re-Assessments/Exams Free Text/Narrative Re-Assessment/Exam: 50-year-old female presenting to the emergency department with complaints of abdominal discomfort and bloating postop appendectomy last Thursday. Reports pain has been somewhat constant since surgery. She has not taken any kcwj-[id number] medications for pain and ran out of her oxycodone that she was prescribed postop about 3 days after discharge. On exam, she has minimal tenderness periumbilically in the right lower quadrant. There are total of 5 lap sites which are well approximated with no redness or warmth, drainage. Bowel sounds are active. She has been passing gas and having bowel movements. Denies any vomiting. Vital signs are stable. I have ordered blood work, urinalysis, Covid test, CT scan of the abdomen pelvis with IV and oral contrast. I will give IV fluids, Zofran for nausea, and Dilaudid for pain. 05/23/21 16:30 Hematology is overall unremarkable. Urinalysis negative for infection. Covid is negative. CT scan of the abdomen pelvis results as follows: 1. Only prominent small bowel which is felt to be compatible with a minimal small bowel ileus. 2. Prior surgery off the tip of the cecum. 3. No additional abnormalities seen on CT study of the abdomen and pelvis This was discussed with the general surgeon on-call at [facility], Dr. Espinoza. Patient is not having vomiting and is passing gas and having bowel movements, she does not require admission into the hospital. He recommends that she start laxatives and avoid any narcotic pain medications. Discussed this with patient and she is in agreement. I will have her start MiraLAX twice daily for the next few days. Discharge instructions as documented. Departure - Departure Time of Disposition: 16:31 Disposition: Home, Self-Care 01 Condition: Good Clinical Impression: Postoperative ileus - Discharge Information *PRESCRIPTION DRUG MONITORING PROGRAM REVIEWED*: No *COPY OF PRESCRIPTION DRUG MONITORING REPORT IN PATIENT NELLY: No Instructions: Ileus Referrals: PCP,None [Primary Care Provider] - Forms: ED Department Discharge Additional Instructions: You were seen in the emergency department today for abdominal pain and bloating after surgery last week. Work-up included blood work, urinalysis, Covid test, and CT scan your abdomen pelvis. Results indicate that you have a mild postop ileus. Recommendation from the surgeon in [place] is that you start laxatives. I would recommend using [id number] MiraLAX twice daily for the next few days until you establish regular bowel movements. Use Tylenol as needed for discomfort. If you should experience worsening symptoms, please not hesitate to return to the emergency department for reevaluation. Sepsis Event Note (ED) - Focused Exam Vital Signs: Vital Signs Temp Pulse Resp BP Pulse Ox 05/23/21 13:09 98.0 F 75 20 100/63 98 - My Orders Last 24 Hours: My Active Orders 05/23/21 13:19 Blood Culture x2 Reflex Set [OM.PC] Stat Peripheral IV Insertion Adult [OM.PC] Stat 05/23/21 13:32 BLOOD CULTURE [MREF] Stat 05/23/21 13:42 BLOOD CULTURE [MREF] Stat - Assessment/Plan Last 24 Hours: My Active Orders 05/23/21 13:19 Blood Culture x2 Reflex Set [OM.PC] Stat Peripheral IV Insertion Adult [OM.PC] Stat 05/23/21 13:32 BLOOD CULTURE [MREF] Stat 05/23/21 13:42 BLOOD CULTURE [MREF] Stat
--- NOTE | 2021-05-23 15:07 | CT ---
CT abdomen and pelvis Technique: Multiple axial sections were obtained from above the dome of the diaphragm inferiorly through the pubic symphysis. Intravenous and oral contrast were utilized. Delayed images were also obtained through the bladder. Reconstructed coronal and sagittal images were obtained. Comparison: Prior CT abdomen and pelvis study of 05/13/21. Findings: Visualized lung bases show nothing acute. Liver contains no focal parenchymal abnormality. Gallbladder is collapsed with no calcified gallstones being seen. Spleen size is normal. Adrenal glands show no nodule. Pancreas appears within normal limits. Kidneys show symmetric contrast enhancement with no hydronephrosis or mass. Abdominal aorta shows mild atherosclerotic change but no aneurysm. Atherosclerotic change continues into the iliac vessels. No retroperitoneal adenopathy is seen. No mesenteric abnormalities are seen. Surgical material is seen off the tip of the cecum. No pelvic mass or adenopathy is seen. Appendix is not visualized. Delayed images show contrast within both distal ureters and within the bladder. There is minimal small bowel dilatation being seen which is felt compatible with minimal small bowel ileus. Bone window settings were obtained which show mild scattered degenerative change within the spine. Impression: 1. Minimally prominent small bowel which is felt to be compatible with minimal small bowel ileus. 2. Prior surgery off the tip of the cecum. 3. No additional abnormality is seen on CT study of the abdomen and pelvis. Diagnostic code #3
== END 2021-05-23 16:50 | disposition home or self-care (01) ==
LOC: JD.ED 12:53
DX: K56.7 Ileus, unspecified (principal); Z88.8 Allergy status to other drugs, medicaments and biological substances; Z72.0 Tobacco use; Z20.822 Contact with and (suspected) exposure to COVID-19
CPT/HCPCS: 36415; 74177; 80053; 81001; 83605; 85025; 86140; 87040; 87635; 96374; 96375; 99284; J1170; J2405; J7030; Q9963; Q9967; U0002

== ENCOUNTER 2021-06-09 08:47 | Emergency (ER) | payer OTHER ==
[2021-06-09 09:00] VITALS: PULSE 73
--- NOTE | 2021-06-09 09:15 | EDM.PDOC ---
ED HPI GENERAL MEDICAL PROBLEM - General Chief Complaint: General Stated Complaint: POSS ALLERGIC REACTION Time Seen by Provider: 06/09/21 08:54 - History of Present Illness INITIAL COMMENTS - FREE TEXT/NARRATIVE: 50-year-old female brought in with a possible allergic reaction to Tylenol and/or naproxen. Patient developed a toothache around 1 AM this morning right upper tooth. She is got multiple teeth in this area that need dental attention. This morning around 630 or 7:00 the patient took Tylenol and naproxen unsure of the doses. Patient is suspicious she has had an allergic reaction to the 1 or both of these medications. The patient does have a history of an ibuprofen allergy where she broke out in hives and started itching. She has not developed symptoms like this. The patient has not had symptoms such as hives or itching yet today she just does not feel right. Shortly after the patient was brought to the exam room nursing called me because she was hypotensive and diaphoretic. She was started on IV fluids and her blood pressure responded. She does not appear to be febrile. The patient had an appendectomy 3 weeks ago and says that her abdominal pain is getting better over time. She is not had any nausea vomiting or diarrhea. The surgery was done in [place]. - Related Data Allergies Allergy/AdvReac Type Severity Reaction Status Date / Time ibuprofen Allergy Intermediate Hives Verified 06/09/21 09:11 Home Meds: Home Meds . 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 Denies: Constipation, Diarrhea, Nausea, Vomiting : Reports: No Symptoms Musculoskeletal: Reports: No Symptoms Skin: Reports: No Symptoms Neurological: Reports: No Symptoms ED EXAM, GENERAL - Physical Exam Exam: See Below Exam Limited By: Other (The patient is short snappy and difficult to get much history from) General Appearance: No Apparent Distress, Other (She is responding favorably to IV fluids) Eye Exam: Bilateral Eye: Normal Inspection Ears: Normal External Exam, Normal Canal, Hearing Grossly Normal, Normal TMs Nose: Normal Inspection, Normal Mucosa, No Blood Throat/Mouth: Normal Inspection, Normal Lips, Normal Gums, Normal Oropharynx, Normal Voice, No Airway Compromise, Other (She has rotten-looking teeth in general a couple have eroded nearly to the gums on the right lower teeth). No: Normal Teeth (Left upper teeth have multiple areas that need repair minimal gum involvement) Head: Atraumatic, Normocephalic Neck: Normal Inspection. No: Lymphadenopathy (L), Lymphadenopathy (R) Respiratory/Chest: No Respiratory Distress, Lungs Clear Cardiovascular: Normal Peripheral Pulses, Regular Rate, Rhythm, No Edema GI/Abdominal: Normal Bowel Sounds, Soft, Other (Tender with palpation but no rigidity or guarding noted) Back Exam: Normal Inspection. No: CVA Tenderness (L), CVA Tenderness (R) Extremities: Normal Inspection, No Pedal Edema Skin Exam: Other (She was cool and clammy and diaphoretic but this resolved with IV fluids.) #1 Interpretation EKG Date: 06/09/21 Rhythm: NSR Rate (Beats/Min): 75 [place]: Normal P-Wave: Present QRS: Normal ST-T: Normal QT: Normal Comparison: No Change (From EKG done on 12/29/2020) EKG Interpretation Comments: Normal EKG Course - Vital Signs Last Recorded V/S: Last Vital Signs Temp 35.9 C L 06/09/21 09:10 Pulse 73 06/09/21 08:56 Resp 12 06/09/21 08:56 BP 82/58 L 06/09/21 08:56 Pulse Ox 99 06/09/21 08:56 - Orders/Labs/Meds Orders: Active Orders 24 hr Category Date Time Status Chest 1V Frontal [CR] Stat Exams 06/09/21 09:11 Taken BLOOD CULTURE [MREF] Stat Lab 06/09/21 09:32 Received BLOOD CULTURE [MREF] Stat Lab 06/09/21 09:54 Received Blood Culture x2 Reflex Set [OM.PC] Stat Oth 06/09/21 09:10 Ordered Labs: Laboratory Tests 06/09/21 06/09/21 06/09/21 Range/Units 09:05 09:06 09:10 WBC (3.98-10.04) K/mm3 RBC (3.98-5.22) M/mm3 Hgb (11.2-15.7) gm/dl Hct (34.1-44.9) % MCV (79.4-94.8) fl MCH (25.6-32.2) pg MCHC (32.2-35.5) g/dl RDW Std Deviation (36.4-46.3) fL Plt Count (182-369) K/mm3 MPV (9.4-12.3) fl Neutrophils % (Manual) (40-60) % Band Neutrophils % (0-10) % Lymphocytes % (Manual) (20-40) % Atypical Lymphs % % Monocytes % (Manual) (2-10) % Eosinophils % (Manual) (0.7-5.8) % Basophils % (Manual) (0.1-1.2) Platelet Estimate Plt Morphology Comment RBC Morph Comment Sodium (136-145) mEq/L Potassium (3.5-5.1) mEq/L Chloride (98-107) mEq/L Carbon Dioxide (21-32) mEq/L Anion Gap (5-15) BUN (7-18) mg/dL Creatinine (0.55-1.02) mg/dL Est Cr Clr Drug Dosing mL/min Estimated GFR (MDRD) (>60) mL/min BUN/Creatinine Ratio (14-18) Glucose (70-99) mg/dL POC Glucose 136 H (70-99) mg/dL Lactic Acid (0.4-2.0) mmol/L Calcium (8.5-10.1) mg/dL Total Bilirubin (0.2-1.0) mg/dL AST (15-37) U/L ALT (14-59) U/L Alkaline Phosphatase (46-116) U/L Total Protein (6.4-8.2) g/dl Albumin (3.4-5.0) g/dl Globulin gm/dL Albumin/Globulin Ratio (1-2) Urine Color Yellow (Yellow) Urine Appearance Clear (Clear) Urine pH 5.5 (5.0-8.0) Ur Specific [place] > or = 1.030 (1.005-1.030) Urine Protein Negative (Negative) Urine Glucose (UA) Negative (Negative) Urine Ketones Negative (Negative) Urine Occult Blood Negative (Negative) Urine Nitrite Negative (Negative) Urine Bilirubin Negative (Negative) Urine Urobilinogen 0.2 (0.2-1.0) Ur Leukocyte Esterase Negative (Negative) Salicylates (2.8-20) mg/dL Urine Opiates Screen (KMWEQZ=150) Ur Buprenorphine Scrn (CUTOFF=10) Ur Oxycodone Screen (RJX7JH=779) Urine Methadone Screen (BEONNU=099) Ur Propoxyphene Screen (FGCHSQ=542) Acetaminophen (10-30) ug/mL Ur Barbiturates Screen (GLMFLH=913) Ur Tricyclics Screen (FZJZFU=034) Ur Phencyclidine Scrn (CUTOFF=25) Ur Amphetamine Screen (STLTTV=051) U Methamphetamines Scrn (FZROMP=029) U Benzodiazepines Scrn (BVLXLM=131) U Cocaine Metab Screen (TYRXEZ=082) U Marijuana (THC) Screen (CUTOFF=50) Ethyl Alcohol (0.00) gm% SARS-CoV-2 RNA (JUAN) Negative (NEGATIVE) 06/09/21 06/09/21 06/09/21 Range/Units 09:10 09:32 09:32 WBC 14.97 H (3.98-10.04) K/mm3 RBC 4.51 (3.98-5.22) M/mm3 Hgb 14.1 (11.2-15.7) gm/dl Hct 43.2 (34.1-44.9) % MCV 95.8 H (79.4-94.8) fl MCH 31.3 (25.6-32.2) pg MCHC 32.6 (32.2-35.5) g/dl RDW Std Deviation 44.9 (36.4-46.3) fL Plt Count 459 H (182-369) K/mm3 MPV 9.5 (9.4-12.3) fl Neutrophils % (Manual) 64 H (40-60) % Band Neutrophils % 2 (0-10) % Lymphocytes % (Manual) 25 (20-40) % Atypical Lymphs % 0 % Monocytes % (Manual) 1 L (2-10) % Eosinophils % (Manual) 8 H (0.7-5.8) % Basophils % (Manual) 0 L (0.1-1.2) Platelet Estimate Increased Plt Morphology Comment Normal RBC Morph Comment Normal Sodium 142 (136-145) mEq/L Potassium 3.4 L (3.5-5.1) mEq/L Chloride 106 (98-107) mEq/L Carbon Dioxide 25 (21-32) mEq/L Anion Gap 14.4 (5-15) BUN 15 (7-18) mg/dL Creatinine 1.1 H (0.55-1.02) mg/dL Est Cr Clr Drug Dosing 48.39 mL/min Estimated GFR (MDRD) 53 (>60) mL/min BUN/Creatinine Ratio 13.6 L (14-18) Glucose 165 H (70-99) mg/dL POC Glucose (70-99) mg/dL Lactic Acid (0.4-2.0) mmol/L Calcium 8.6 (8.5-10.1) mg/dL Total Bilirubin 0.2 (0.2-1.0) mg/dL AST 12 L (15-37) U/L ALT 12 L (14-59) U/L Alkaline Phosphatase 77 (46-116) U/L Total Protein 6.3 L (6.4-8.2) g/dl Albumin 3.2 L (3.4-5.0) g/dl Globulin 3.1 gm/dL Albumin/Globulin Ratio 1.0 (1-2) Urine Color (Yellow) Urine Appearance (Clear) Urine pH (5.0-8.0) Ur Specific [place] (1.005-1.030) Urine Protein (Negative) Urine Glucose (UA) (Negative) Urine Ketones (Negative) Urine Occult Blood (Negative) Urine Nitrite (Negative) Urine Bilirubin (Negative) Urine Urobilinogen (0.2-1.0) Ur Leukocyte Esterase (Negative) Salicylates (2.8-20) mg/dL Urine Opiates Screen Negative (HFXMYW=802) Ur Buprenorphine Scrn Negative (CUTOFF=10) Ur Oxycodone Screen Negative (XSP3HB=980) Urine Methadone Screen Negative (LBGZIL=283) Ur Propoxyphene Screen Negative (QULKLR=238) Acetaminophen (10-30) ug/mL Ur Barbiturates Screen Negative (RCREFD=594) Ur Tricyclics Screen Negative (MLXFTI=341) Ur Phencyclidine Scrn Negative (CUTOFF=25) Ur Amphetamine Screen Presumptive positive H (FFGUBQ=289) U Methamphetamines Scrn Presumptive positive H (QXTFDJ=589) U Benzodiazepines Scrn Negative (PMMLQX=914) U Cocaine Metab Screen Negative (NLLUDX=557) U Marijuana (THC) Screen Presumptive positive H (CUTOFF=50) Ethyl Alcohol (0.00) gm% SARS-CoV-2 RNA (JUAN) (NEGATIVE) 06/09/21 06/09/21 06/09/21 Range/Units 09:32 09:32 09:32 WBC (3.98-10.04) K/mm3 RBC (3.98-5.22) M/mm3 Hgb (11.2-15.7) gm/dl Hct (34.1-44.9) % MCV (79.4-94.8) fl MCH (25.6-32.2) pg MCHC (32.2-35.5) g/dl RDW Std Deviation (36.4-46.3) fL Plt Count (182-369) K/mm3 MPV (9.4-12.3) fl Neutrophils % (Manual) (40-60) % Band Neutrophils % (0-10) % Lymphocytes % (Manual) (20-40) % Atypical Lymphs % % Monocytes % (Manual) (2-10) % Eosinophils % (Manual) (0.7-5.8) % Basophils % (Manual) (0.1-1.2) Platelet Estimate Plt Morphology Comment RBC Morph Comment Sodium (136-145) mEq/L Potassium (3.5-5.1) mEq/L Chloride (98-107) mEq/L Carbon Dioxide (21-32) mEq/L Anion Gap (5-15) BUN (7-18) mg/dL Creatinine (0.55-1.02) mg/dL Est Cr Clr Drug Dosing mL/min Estimated GFR (MDRD) (>60) mL/min BUN/Creatinine Ratio (14-18) Glucose (70-99) mg/dL POC Glucose (70-99) mg/dL Lactic Acid 1.3 (0.4-2.0) mmol/L Calcium (8.5-10.1) mg/dL Total Bilirubin (0.2-1.0) mg/dL AST (15-37) U/L ALT (14-59) U/L Alkaline Phosphatase (46-116) U/L Total Protein (6.4-8.2) g/dl Albumin (3.4-5.0) g/dl Globulin gm/dL Albumin/Globulin Ratio (1-2) Urine Color (Yellow) Urine Appearance (Clear) Urine pH (5.0-8.0) Ur Specific [place] (1.005-1.030) Urine Protein (Negative) Urine Glucose (UA) (Negative) Urine Ketones (Negative) Urine Occult Blood (Negative) Urine Nitrite (Negative) Urine Bilirubin (Negative) Urine Urobilinogen (0.2-1.0) Ur Leukocyte Esterase (Negative) Salicylates 2.5 L (2.8-20) mg/dL Urine Opiates Screen (SNSKJU=890) Ur Buprenorphine Scrn (CUTOFF=10) Ur Oxycodone Screen (CVR3VX=579) Urine Methadone Screen (IYDHTU=276) Ur Propoxyphene Screen (UGNYKN=768) Acetaminophen 3 L (10-30) ug/mL Ur Barbiturates Screen (IVFDVG=841) Ur Tricyclics Screen (SCZGNH=959) Ur Phencyclidine Scrn (CUTOFF=25) Ur Amphetamine Screen (DTYAJH=473) U Methamphetamines Scrn (PRMECI=842) U Benzodiazepines Scrn (JSAMQB=490) U Cocaine Metab Screen (SVQQBG=420) U Marijuana (THC) Screen (CUTOFF=50) Ethyl Alcohol 0.00 (0.00) gm% SARS-CoV-2 RNA (JUAN) (NEGATIVE) Meds: Medications Discontinued Medications Generic Name Dose Route Start Last Admin Trade Name Shilo PRN Reason Stop Dose Admin Amoxicillin 1,000 mg 06/09/21 11:50 06/09/21 11:54 Amoxicillin 500 Mg Cap PO 06/09/21 11:51 1,000 mg ONETIME ONE Administration Lactated Ringer's 1,000 mls @ 999 mls/hr 06/09/21 09:29 06/09/21 09:01 Ringers, Lactated IV 06/09/21 10:29 999 mls/hr .BOLUS ONE Administration Potassium Chloride 40 meq 06/09/21 11:40 06/09/21 11:54 Potassium Chloride 20 Meq Tab.Er PO 06/09/21 11:41 40 meq ONETIME ONE Administration - Re-Assessments/Exams Free Text/Narrative Re-Assessment/Exam: 06/09/21 09:30 Patient presented she was evaluated considered an anaphylactic reaction however this seemed unlikely she responded quickly and favorably to IV fluids. The patient has a unusual affect. We will check toxicology, sepsis labs. Concerned about the possibility of Tylenol overdose 06/09/21 11:48 Patient is doing much better after getting fluids patient is convinced this was a reaction to the naproxen Tylenol level is low. White count is mildly elevated. I Nia give her a gram of amoxicillin now awaiting Covid results and will discharge after this the patient is otherwise very insistent on getting out here that she agrees to this plan. I talked to her about the meth in her system she says she is going to stop using it. Departure - Departure Time of Disposition: 12:18 Disposition: Home, Self-Care 01 Clinical Impression: Medication reaction, Dental caries - Discharge Information Referrals: PCP,None [Primary Care Provider] - Forms: ED Department Discharge Additional Instructions: Return to the emergency room with any questions problems or worsening symptoms. You have been started on amoxicillin this is an antibiotic. Your first dose was given here in the emergency room today you need to potato picker your prescription before 4:00 at the [facility] pharmacy across the road from [facility]. You must follow-up with a dentist as soon as you can. Tylenol as needed for pain. Do not use ibuprofen or naproxen or any other pain medication other than Tylenol. Stop meth it is not helping you. Sepsis Event Note (ED) - Evaluation Sepsis Screening Result: No Definite Risk - Focused Exam Vital Signs: Vital Signs Temp Pulse Resp BP Pulse Ox 06/09/21 09:10 35.9 C L 06/09/21 08:56 73 12 82/58 L 99 - My Orders Last 24 Hours: My Active Orders 06/09/21 09:10 Blood Culture x2 Reflex Set [OM.PC] Stat 06/09/21 09:11 Chest 1V Frontal [CR] Stat 06/09/21 09:32 BLOOD CULTURE [MREF] Stat 06/09/21 09:54 BLOOD CULTURE [MREF] Stat - Assessment/Plan Last 24 Hours: My Active Orders 06/09/21 09:10 Blood Culture x2 Reflex Set [OM.PC] Stat 06/09/21 09:11 Chest 1V Frontal [CR] Stat 06/09/21 09:32 BLOOD CULTURE [MREF] Stat 06/09/21 09:54 BLOOD CULTURE [MREF] Stat
[2021-06-09] MEDS ORDERED: Lactated Ringers 1,000 ML IV ONE (09:29)
[2021-06-09] MEDS ORDERED: Potassium Chloride 20 MEQ Tab.ER PO ONE (11:40)
[2021-06-09] MEDS ORDERED: Amoxicillin 500 MG Cap PO ONE (11:50)
[2021-06-09 12:44] VITALS: BP 122/84
--- NOTE | 2021-06-10 09:43 | CR ---
Chest: Portable view of the chest was obtained. Comparison: Prior chest x-ray of 01/02/15. Film technique is dark. Within this limitation, no definite acute parenchymal change is seen. Heart size and mediastinum are normal. No definite acute osseous abnormality is appreciated. Impression: 1. Dark technique. Within this limitation, nothing acute is appreciated. Diagnostic code #2
== END 2021-06-09 12:44 | disposition home or self-care (01) ==
LOC: JD.ED 08:47
DX: K02.9 Dental caries, unspecified (principal); T39.315A Adverse effect of propionic acid derivatives, initial encounter; Z90.49 Acquired absence of other specified parts of digestive tract; Z88.6 Allergy status to analgesic agent; Z20.822 Contact with and (suspected) exposure to COVID-19
CPT/HCPCS: 36415; 71045; 80053; 80143; 80179; 80306; 80307; 81003; 82947; 83605; 85007; 85027; 87040; 87635; 87804; 93005; 99284; A9270; J7120; U0002

== ENCOUNTER 2021-12-26 09:52 | Emergency (ER) | payer OTHER ==
[2021-12-26 12:02] VITALS: BP 110/76; PULSE 66
[2021-12-26] MEDS ORDERED: HYDROmorphone 0.5 MG/0.5 ML Syringe IM ONE (12:14)
[2021-12-26] MEDS ORDERED: Dextrose 5%-0.45% NaCl 1,000 ML IV SCH (13:45)
== END 2021-12-26 14:20 | disposition home or self-care (01) ==
LOC: JD.ED 09:52
DX: M54.31 Sciatica, right side (principal); Z88.5 Allergy status to narcotic agent; Z88.8 Allergy status to other drugs, medicaments and biological substances
CPT/HCPCS: 96372; 99283; J1170

== ENCOUNTER 2021-12-28 17:06 | Emergency (ER) | payer OTHER ==
[2021-12-28 17:38] VITALS: BP 133/76; PULSE 73
[2021-12-28] MEDS ORDERED: HYDROmorphone 1 MG/ML Syringe IM ONE (17:53)
[2021-12-28] MEDS ORDERED: methylPREDNISolone Sodium Succinate 40 MG/1 ML SDV IM ONE (17:53)
== END 2021-12-28 20:21 | disposition home or self-care (01) ==
LOC: JD.ED 17:06
DX: M54.41 Lumbago with sciatica, right side (principal); F17.210 Nicotine dependence, cigarettes, uncomplicated; Z90.49 Acquired absence of other specified parts of digestive tract; Z90.710 Acquired absence of both cervix and uterus; Z88.8 Allergy status to other drugs, medicaments and biological substances; Z88.6 Allergy status to analgesic agent
CPT/HCPCS: 73502; 96372; 99283; J1170; J2920

== ENCOUNTER 2022-05-15 22:43 | Emergency (ER) | payer OTHER ==
[2022-05-15 22:59] VITALS: BP 123/89; PULSE 78
[2022-05-15] MEDS ORDERED: Sodium Chloride 0.9% 1,000 ML IV ONE (23:46)
== END 2022-05-16 00:55 | disposition home or self-care (01) ==
LOC: JD.ED 22:43
DX: U07.1 COVID-19 (principal); F17.210 Nicotine dependence, cigarettes, uncomplicated; Z88.6 Allergy status to analgesic agent; Z88.8 Allergy status to other drugs, medicaments and biological substances; Z86.16 Personal history of COVID-19; Z90.49 Acquired absence of other specified parts of digestive tract; Z90.710 Acquired absence of both cervix and uterus
CPT/HCPCS: 96360; 99283; J7030

== ENCOUNTER 2022-12-11 22:14 | Emergency (ER) | payer OTHER ==
[2022-12-11] MEDS ORDERED: Lidocaine 1% 10 ML MDV INJECT ONE (22:20)
[2022-12-11 22:23] VITALS: BP 145/86; PULSE 91
== END 2022-12-11 22:54 | disposition home or self-care (01) ==
LOC: JD.ED 22:14
DX: S51.011A Laceration without foreign body of right elbow, initial encounter (principal); Z88.6 Allergy status to analgesic agent; Z86.16 Personal history of COVID-19; W23.0XXA Caught, crushed, jammed, or pinched between moving objects, initial encounter
CPT/HCPCS: 12001; 99282; J3490

== ENCOUNTER 2023-03-27 00:52 | Emergency (ER) | payer OTHER ==
[2023-03-27 01:13] VITALS: BP 130/75; PULSE 110
[2023-03-27 01:25] LABS: APPEARANCE,URINE CLOUDY (Clear); BILIRUBIN,URINE NEGATIVE (Negative); COLOR,URINE YELLOW (Yellow); GLUCOSE,URINE NEGATIVE (Negative); KETONES,URINE NEGATIVE (Negative); LEUKOCYTE ESTERASE,URINE 2+ (Negative); NITRITE,URINE NEGATIVE (Negative); OCCULT BLOOD,URINE 3+ (Negative); PROTEIN,URINE 1+ (Negative); UROBILINOGEN,URINE 0.2 (0.2-1.0)
[2023-03-27 01:43] LABS: BACTERIA,URINE FEW /hpf (FEW); EPITHELIAL CELLS,URINE 0-5 /hpf (0-5); MUCUS,URINE FEW /hpf (FEW); RBC,URINE >100 /hpf (0-5); WBC,URINE 75-100 /hpf (0-5)
[2023-03-27] MEDS ORDERED: Cephalexin 500 MG Cap PO ONE (01:57)
== END 2023-03-27 02:18 | disposition home or self-care (01) ==
LOC: JD.ED 00:52
DX: N39.0 Urinary tract infection, site not specified (principal); Z86.16 Personal history of COVID-19; Z88.6 Allergy status to analgesic agent; Z88.8 Allergy status to other drugs, medicaments and biological substances
CPT/HCPCS: 81001; 87086; 99283; A9270

== ENCOUNTER 2024-08-30 17:30 | Emergency (ER) | payer OTHER ==
[2024-08-30] MEDS: Acetaminophen 325 MG Tab PO ONE (18:56)
[2024-08-30] MEDS: Amoxicillin/Clavulanate K 875-125 MG Tab PO ONE (18:57)
[2024-08-30 18:59] VITALS: BP 141/72; PULSE 88
== END 2024-08-30 19:22 | disposition home or self-care (01) ==
LOC: JD.ED 17:30
DX: K02.9 Dental caries, unspecified (principal); F17.210 Nicotine dependence, cigarettes, uncomplicated; Z88.6 Allergy status to analgesic agent; Z88.5 Allergy status to narcotic agent; Z79.899 Other long term (current) drug therapy; Z86.16 Personal history of COVID-19; Z90.710 Acquired absence of both cervix and uterus
CPT/HCPCS: 99283; A9270; 99282